=== PATIENT | female | born 1970 | race Caucasian/White ===

== ENCOUNTER 2022-02-13 12:36 | Emergency (ER) | payer OTHER, SELFPAY ==
[~2022-02-13 12:36] MED LIST: Iopamidol-370 76% 500 ML 1 ML ONE
[2022-02-13] MEDS ORDERED: Morphine 4 MG/ML VIAL ONE (13:26)
[2022-02-13] MEDS ORDERED: Ondansetron PF 4 MG/2 ML Vial ONE (13:27)
[2022-02-13] MEDS ORDERED: HYDROcodone/Acetaminophen 10/325 mg Tablet ONE (15:24)
[2022-02-13] MEDS ORDERED: Boostrix 0.5 ML (Tdap) VIAL (>/=7 yrs of age) ONE (15:25)
== END 2022-02-13 16:00 | disposition home or self-care (01) ==
LOC: ERS 12:36
DX: S50.02XA Contusion of left elbow, initial encounter (principal); S80.02XA Contusion of left knee, initial encounter; S60.211A Contusion of right wrist, initial encounter; V29.99XA Rider (driver) (passenger) of other motorcycle injured in unspecified traffic accident, initial encounter
CPT/HCPCS: 70450; 71260; 72125; 74177; 90471; 90715; 94640; 96374; 96375; J2270; J2405; J7620; Q9967